=== PATIENT | female | born 1990 | race Two or more races ===

== ENCOUNTER → 2016-08-25 | Outpatient (CLI) | payer BC ==
--- NOTE | 2016-08-25 17:58 | RADRPT ---
PROCEDURE: XR Left Hip and pelvis. CLINICAL INDICATION: Left hip pain. Pelvic pain. TECHNIQUE: Two views. Frontal pelvis and lateral left hip. COMPARISON: No prior studies are available for comparison. FINDINGS: The right hip is normal with no fracture or dislocation. The left hip is grossly abnormal with chronic dislocation and pseudoacetabulum. The left femoral hea d is markedly dysplastic. A lotus is present in the shaft of the left femur with sclerosis in the pro ximal shaft consistent with an old healed fracture. There is no acute fracture. There is no right hip dislocation. There is no lytic or blastic lesion. The upper pelvis is not included on the images. IMPRESSION: 1. Normal right hip. 2. Grossly abnormal left hip with chronic dislocation and pseudoacetabulum. 3. Old open reduction internal fixation of the left femur. RPTAT: QQ .Meño Eng MD, Date Time Electronically viewed and signed by .Meño Eng MD, on 08/25/2016 17:58 .R/
--- NOTE | 2016-08-26 07:20 | HKNOTE ---
DATE OF SERVICE: 08/25/2016 MAIN COMPLAINT: Pain in the left hip and shortening of the left leg. 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 Her condition was not diagnosed until she was several months old. Once the d islocation was discovered, she was told to "wait until you're older for treatment." At the age of 6 , she underwent an operation on the left leg to lengthen the leg. She fell about a year later and f ractured the femur, and an intramedullary lotus was then inserted. At a later date, the patient underwent surgery to the right knee area to perform an epiphysiodesis. Although this did help to bring the legs towards a closer leg length, it was far from satisfactory. The patient seems to have managed somehow. She complains of pain in her left hip and instability of the left hip. Her condition has not become worse of late. She is just hopeful to find somebody who could "make me walk better." Two years ago, the patient took another fall and injured her left knee. Dr. George performed an brian ficial reconstruction of the anterior cruciate ligament. PRESENT COMPLAINTS: The pain in the hip is described as being moderate and is aggravated by walking , weightbearing and stair climbing. She does get rest pain and night pain. She is not taking any m edication for the pain. She does not have any history of trouble with her lower back. No numbness or tingling in her legs. She walks without support. She does not have a cane. She gets pain with every step that she takes. She can walk no more than 10 minutes at a time, but she has pain in the hip with every step that she takes. At the 10-minute point, she pretty much has to stop walking and take a rest for a while before she can proceed. If she has any prolonged walking involved, as in [place] to [facility], she has to be wheeled around in a wheelchair by her family. The patient limps severely all the time, and the left leg is much shorter than the right leg. She d oes not have a shoe lift. She is able to clip her toenails and tie her shoelaces on both feet. PAST ORTHOPEDIC HISTORY: Previous orthopedic operations as noted above. PRIOR CORTISONE INTAKE: None. ALCOHOL INTAKE: None. OTHER JOINT PROBLEMS: None. BLOOD TESTS FOR ARTHRITIS: None. WORK STATUS: The patient does not work. She has never held a job. She is not on disability, but t he demands of any kind of a job would be "too much for me." PAST MEDICAL HISTORY: Negative. PAST SURGICAL HISTORY: Orthopedic operations are noted above. DRUG ALLERGIES: NONE. MEDICATIONS: None. FAMILY HISTORY: Not provided. SYSTEMS REVIEW: Prone to headaches, gait disturbance, otherwise entirely negative. HABITS: The patient does not smoke or drink alcoholic beverages. PHYSICAL EXAMINATION: GENERAL: The patient is a delightful 25-year-old female. VITAL SIGNS: Height 4 feet 11 inches. Weight 146 pounds. Blood pressure 110/70, temperature 99.2. GAIT: The patient has a severe gait-related weakness of the left hip abductors and displacement of the center of the femoral head. LEFT HIP: A full range of motion without pain. LEFT KNEE: Scar of previous surgery. Full range of motion without pain. IMAGING: Plain x-rays of the pelvis and proximal femurs obtained at [facility] today show an old congenital dislocation of the hip. The acetabulum is very rudimentary. The fe moral head is very rudimentary and is located at least 3-1/2 inches proximal to the acetabulum. 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 DIAGNOSES: 1. Congenital dysplasia of the left hip. 2. Attempts to lengthen the leg. 3. Internal fixation of a fracture of the proximal femur. 4. Leg length discrepancy. MANAGEMENT: The patient is advised that unfortunately in my opinion there is probably very little t hat can be done to restore her leg length or to restore the function of the left hip. However, she was told that there is 1 orthopedic surgeon at [facility] who, if anybody, may be able to improve her situation, ____ Risa. He is a hip and knee reconstruction expert, and he also is involved with joint replacements in child hanh and young adults. I called Dr. Lord's office while she was here today and made an appointment for her. She will be seen again as necessary. Dictated By: ISRAEL CASTELLANOS/TADEO Conf#: [id number] [facility]#: [id number]
== END | disposition home or self-care (01) ==
LOC: HKI 15:11
DX: M25.552 Pain in left hip (principal); Q65.89 Other specified congenital deformities of hip
CPT/HCPCS: 73502; G0463